=== PATIENT | female | born 1965 | race Caucasian/White ===

== ENCOUNTER 2017-08-27 09:18 | Day surgery (SDC) | payer OTHER, SELFPAY ==
--- NOTE | 2017-08-27 | EMB_PTH ---
PATIENT: HOLGER LYNN [place] [facility] [id number] AGE/SX: 51/F ROOM: RE08/27/[address]: Dr. Blanca Santos, MDDOB: 1965 BED: DIS: 08/27/2017 SPEC #: [id number] RECD: 08/28/17 09:23 STATUS: RHEA DEN #: [id number] ROCKY: 08/27/17 00:[address]: Blanca Santos DEPT: SURGICAL PATHOLOGY RECD BY: Jose Daniel Segura ENTERED: 08/28/17 09:23 SP TYPE: ENDOM BX/C LENO DR: Out of [facility] Doctor Tissues: Endometrium, NOS Procedures: Surgery Specimen Level IV HEADER OPERATION: Hysteroscopy, D & C, Chiquita PRE-OP DIAGNOSIS: Heavy menses, abnormal uterine bleeding TISSUE SUBMITTED: Endometrial curettings MICROSCOPIC DIAGNOSIS Endometrium, curettings: Proliferative endometrium with chronic endometritis and focal glandular breakdown. GRISELDA:marjan 08/31/17 MICROSCOPIC DESCRIPTION Slides are reviewed. GROSS DESCRIPTION Received in fixative is one container labeled with the patient's name and designated endometrial curettings. The specimen consists of multiple fragments of hemorrhagic soft tissue that in aggregate measure 2.5 x 1.5 x 0.1 cm. The specimen is totally submitted in one cassette. / GRISELDA:marjan 08/30/17 TC:3 CPT: 50223
[2017-08-27 09:41] VITALS: BP 126/81; PULSE 72; RESP 14; TEMP 36.8; O2SAT 96; BMI 32.2
[2017-08-27 09:47] LABS: Internal QC Validated? YES +Cl - CLEAR BKGD; Pregnancy, Urine Negative Negative
[2017-08-27 10:01] LABS: Hematocrit 38.3 % (37-47); Hemoglobin 12.1 g/dl (12.0-15.0); Mean Corp Hgb Conc 31.6 g/gl (32-36); Mean Corpuscular Hgb 24.6 pg (27.0-32.0); Mean Corpuscular Volume 77.8 fL (81-99); Mean Platelet Vol. 10.1 fl (6.2-12.0); Platelet Count 256 K/mm3 (150-450); RBC Distribution Width CV 15.2 % (11.6-14.6); RBC Distribution Width SD 42.9 fl (35.1-43.9); Red Blood Count 4.92 M/mm3 (4.2-5.4); White Blood Count 7.4 K/mm3 (4.4-11.0)
[2017-08-27 10:07] LABS: Scan Indicated on CBC? Y/N NO
--- NOTE | 2017-08-27 14:28 | OP.PCM_ITS ---
Operative Report Date of Procedure: 08/27/17 Surgeon: Dr. Blanca Santos Polysomnography Tech: Sarah Dobson MS3 Pre op diagnosis: Abnormal uterine bleeding Post op diagnosis: same Specimens: EMC EBL: Minimal Complications: None implantable devices: none Anesthesia: MAC Surgery performed: Hysteroscopy, D&C, Chiquita Ablation After informed consent was obtained patient taken to the operating room she is placed in supine position she is given anesthesia simply self insert she is prepped draped normal sterile fashion. Bladder was drained prior to the start of the procedure. At this time the weighted speculum was placed the posterior fornix of the vagina then a single-tooth tenaculum was used to grasp the anterior lip of the cervix. At this time the uterus was sounded to approximately 8 cm the endocervical canal sounded to 4 cm. Next cervix was dilated in incremental fashion. Once adequate dilatation was achieved the hysteroscope was inserted using normal saline as distention medium. On hysteroscopy there were no gross abnormalities. Both tubal ostia were visualized. At this time sharp curettage was performed which yielded small amount of endometrial tissue. tissue will be sent to pathology for evaluation. At this time the Chiquita device was opened. The Chiquita was set at 4 cm. The device was activated. Prior to activation the field test was performed and cavity was intact. The device was then fired and activated for 120 seconds. Once the 120 seconds was completed the device was removed intact and the tenaculum was removed. Good hemostasis was appreciated. Weighted speculum was removed. Vaginal sweep was performed is negative. There were no complications. Anticipated normal postoperative course for this patient. Instrument and lap count were correct ?2.
--- NOTE | 2017-08-27 14:28 | PCM.DC.D&C ---
Discharge Diet: No Restrictions Discharge Activity: Return to Normal Activity, May Shower, May Take a Tub Bath - in 2 weeks. Allergies/Adverse Reactions: Allergies No Known Allergies Allergy (Verified 08/20/17 13:01) Medications to take at Discharge Aspirin E.C. [Ecotrin] 81 mg PO DAILY 08/20/17 Biotin 10,000 mcg PO DAILY 08/20/17 Cetirizine HCl [Zyrtec] 10 mg PO DAILY 08/20/17 Cholecalciferol (Vitamin D3) [Vitamin D3] 125 mcg PO DAILY 08/20/17 Cyanocobalamin [Vitamin B12] 500 mcg PO DAILY@0800 08/20/17 Escitalopram Oxalate [Lexapro] 10 mg PO DAILY 08/20/17 Iron,Carbonyl [Carbonyl Iron] 50 mg PO QODAY 08/20/17 Omeprazole [Prilosec] 20 mg PO DAILY 08/20/17 Vitamin A 8,000 unit PO DAILY 08/20/17 Vitamin E 400 unit PO DAILY 08/20/17 Primary Care Physician: [facility] Doctor,Out of [Primary Care Provider] -
[2017-08-27 14:33] VITALS: BP 109/70; BP 126/81; PULSE 83; RESP 16; TEMP 36.9; O2SAT 95
[2017-08-27 14:38] VITALS: BP 106/70; BP 126/81; PULSE 72; RESP 16; O2SAT 98
[2017-08-27 14:45] VITALS: BP 113/71; BP 126/81; PULSE 71; RESP 16; O2SAT 100
[2017-08-27 14:50] VITALS: BP 113/75; BP 126/81; PULSE 58; RESP 16; TEMP 36.9; O2SAT 98
[2017-08-27 15:26] VITALS: BP 126/81
== END 2017-08-27 15:44 | disposition home or self-care (01) ==
LOC: SDC 09:22 → AC 09:23
PROVIDERS: Visit Provider Obstetrics & Gynecology
PROC: 0U5B8ZZ Destruction of Endometrium, Via Natural or Artificial Opening Endoscopic (ICD-10-PCS; CPT 58558; principal; 2017-08-27 11:00)
DX: N71.1 Chronic inflammatory disease of uterus (principal); N93.9 Abnormal uterine and vaginal bleeding, unspecified; F32.9 Major depressive disorder, single episode, unspecified
CPT/HCPCS: 00952; 58563; 36415; 81025; 85027; 88305; J7120